=== PATIENT | male | born 1985 | race Caucasian/White ===

== ENCOUNTER 2021-05-22 19:44 | Emergency (ER) | payer SELFPAY ==
[~2021-05-22] VITALS: Ht 167.6 cm; Wt 72.6 kg
[2021-05-22 19:58] VITALS: BP 150/90
--- NOTE | 2021-05-22 20:01 | NUR ---
to lobby a/w bed ambulatory
[2021-05-22] MEDS ORDERED: IBUP-2809 PO (21:30)
[2021-05-22 21:51] VITALS: BP 150/90
== END 2021-05-22 21:51 | disposition home or self-care (01) ==
LOC: MED 19:44
DX: M25.512 Pain in left shoulder (principal); V18.0XXA Pedal cycle driver injured in noncollision transport accident in nontraffic accident, initial encounter; Y93.89 Activity, other specified; Y92.89 Other specified places as the place of occurrence of the external cause; Y99.8 Other external cause status
CPT/HCPCS: 73030; 99283

== ENCOUNTER 2021-08-27 22:16 | Emergency (ER) | payer SELFPAY ==
[~2021-08-27 22:16] MED LIST: IBUP-2809 PO
--- NOTE | 2021-08-28 00:20 | NUR ---
CALLED TO TRIAGE X [phone]. NO ANSWER, LWBS
== END 2021-08-28 00:20 | disposition left against medical advice (07) ==
LOC: MED 22:16
DX: S09.92XA Unspecified injury of nose, initial encounter (principal); Z79.899 Other long term (current) drug therapy; Y04.0XXA Assault by unarmed brawl or fight, initial encounter; Y93.89 Activity, other specified; Y92.89 Other specified places as the place of occurrence of the external cause; Y99.8 Other external cause status
CPT/HCPCS: 99281

== ENCOUNTER 2023-03-08 22:55 | Emergency (ER) | payer MEDICAID ==
--- NOTE | 2023-03-08 23:05 | NUR ---
PATIENT CALLED TO TRIAGE, NO RESPONSE PATIENT LEFT WITHOUT BEING SEEN BY DR. MEHTA. NO FURTHER CARE PROVIDED FOR PATIENT.
--- NOTE | 2023-03-08 23:15 | NUR ---
CALLED FOR THE SECOND TIME, NO RESPONSE
--- NOTE | 2023-03-08 23:20 | NUR ---
CALLED FOR THE THIRD TIME NO RESPONSE
== END 2023-03-08 23:05 | disposition left against medical advice (07) ==
LOC: MED 22:55
DX: Z00.00 Encounter for general adult medical examination without abnormal findings (principal); Z53.21 Procedure and treatment not carried out due to patient leaving prior to being seen by health care provider; W18.30XA Fall on same level, unspecified, initial encounter; Y93.89 Activity, other specified; Y92.89 Other specified places as the place of occurrence of the external cause; Y99.8 Other external cause status